=== PATIENT | male | born 1980 | race Caucasian/White ===

== ENCOUNTER 2019-12-28 10:53 | Emergency (ER) | payer SELFPAY ==
[~2019-12-28] VITALS: Ht 177.8 cm; Wt 75.2 kg
[2019-12-28 11:05] VITALS: BP 152/112
[2019-12-28] MEDS ORDERED: ONDANSETRON ODT 4 MG TAB.RAPDIS PO ONE (11:15)
[2019-12-28] MEDS ORDERED: cefTRIAXone IM 250 MG VIAL IM ONE (11:15)
[2019-12-28] MEDS ORDERED: AZITHROMYCIN 250 MG TABLET. PO ONE (11:15)
--- NOTE | 2019-12-28 11:38 | PHYS DOC ---
Past History Past Medical History: No Pertinent History, Kidney Stones Past Surgical History: Other Additional Past Surgical Histo: KIDNEY STONES, SINUS Additional Smoking Information: PACK/DAY Alcohol Use: None General Adult EDM: Chief Complaint: BLOOD IN URINE HPI: HPI: 39-year-old male presents with hematuria that began this morning. Patient also had some burning and pain in his urethra as well. Patient admits to to new unprotected sexual encounters within the last month. Patient denies any fever, abdominal pain, flank pain, vomiting, testicular pain or rashes. Review of Systems: Review of Systems: Constitutional: Denies fever or chills Eyes: Denies change in visual acuity HENT: Denies sore throat Respiratory: Denies cough or shortness of breath Cardiovascular: Denies chest pain or edema GI: Denies abdominal pain, nausea, vomiting, or diarrhea : Positive for dysuria and hematuria, no testicular pain Musculoskeletal: Denies back pain or joint pain Integument: Denies rash Neurologic: Denies headache or focal weakness Psychiatric: Denies depression or anxiety Heart Score: Risk Factors: Risk Factors: DM, Current or recent (<one month) smoker, HTN, HLP, family history of CAD, obesity. Risk Scores: Score 0 - 3: 2.5% MACE over next 6 weeks - Discharge Home Score 4 - 6: 20.3% MACE over next 6 weeks - Admit for Clinical Observation Score 7 - 10: 72.7% MACE over next 6 weeks - Early Invasive Strategies Current Medications: Current Meds: Current Medications Medications (Trade) Dose Ordered Sig/Marquis Start Time Stop Time Status Last Admin Dose Admin Azithromycin (Zithromax) 1,000 mg 1X ONCE 12/28/19 11:15 12/28/19 11:19 DC 12/28/19 11:31 1,000 MG Ceftriaxone Sodium (Rocephin Im) 250 mg 1X ONCE 12/28/19 11:15 12/28/19 11:19 DC 12/28/19 11:33 250 MG Ondansetron HCl (Zofran Odt) 4 mg 1X ONCE 12/28/19 11:15 12/28/19 11:19 DC 12/28/19 11:32 4 MG Allergies: Allergies: Allergies Coded Allergies Type Severity Reaction Last Updated Verified Sulfa (Sulfonamide Antibiotics) Allergy Unknown 12/28/19 Yes Physical Exam: PE: Constitutional: Well developed, well nourished, no acute distress, non-toxic appearance. [] HENT: Normocephalic, atraumatic, bilateral external ears normal, oropharynx moist, no oral exudates, nose normal. [] Eyes: PERRLA, EOMI, conjunctiva normal, no discharge. [] Neck: Normal range of motion, no tenderness, supple, no stridor. [] Cardiovascular:Heart rate regular rhythm, no murmur [] Lungs & Thorax: Bilateral breath sounds clear to auscultation [] Abdomen: Bowel sounds normal, soft, no tenderness, no masses, no pulsatile masses. [] exam: Mild inflammation of the distal urethra with some dried blood on the glans. No testicular pain, swelling, tenderness or erythema. Skin: Warm, dry, no erythema, no rash. [] Back: No tenderness, no CVA tenderness. [] Extremities: No tenderness, no cyanosis, no clubbing, ROM intact, no edema. [] Neurologic: Alert and oriented X 3, normal motor function, normal sensory f unction, no focal deficits noted. [] Psychologic: Affect normal, judgement normal, mood normal. [] Current Patient Data: Vital Signs: Vital Signs Date Time Temp Pulse Resp B/P (MAP) Pulse Ox O2 Delivery O2 Flow Rate FiO2 12/28/19 11:05 98.2 70 20 152/112 (125) 97 Room Air EKG: EKG: [] Radiology/Procedures: Radiology/Procedures: [] Course & Med Decision Making: Course & Med Decision Making Patient patient has white cells will support discharge. Patient has had 2 unprotected sexual encounters in the last month. Patient most likely has urethritis. Patient's been treated for GC and chlamydia. Patient will give follow-up with urology. Return if concerns Dorion Disclaimer: Concetta Disclaimer: This electronic medical record was generated, in whole or in part, using a voice recognition dictation system. Departure Departure: Impression: Primary Impression: Hematuria Additional Impression: Urethritis Disposition: 01 HOME/RESIDENCE PRIOR TO ADM Condition: STABLE Referrals: Dr. Sorensen PCP,NO (PCP) Patient Instructions: Gonorrhea, Females and Males, Hematuria, Adult, Urethritis, Adult Additional Instructions: EMERGENCY DEPARTMENT GENERAL DISCHARGE INSTRUCTIONS Thank you for coming to [facility] [place], [place] Emergency Department (ED) today and trusting us with you care. We trust that you had a positivie experience in our Emergency Department. YOUR FOLLOW UP INSTRUCTIONS ARE FOLLOWS: 1. Do you have a private Doctor? If you do not have a private doctir, please ask for a resource list of physicians or clinics that may be able to assist you with follow up care. 2. The Emergency Physicain has interpreted your x-rays. The X-Ray specialist will also review them. If there is a change in the findingd, you will be notified in 48 hours when at all possible. 3. A lab test or culture has been done, your results will be reviewed and you will be notified if you need a change in treatment. ADDITIONAL INSTRUCTIONS AND INFORMATION: 1. Your care today has been supervised by a physician who is specially trained in emergency care. Many problems require more than one evaluation for a complete diagnosis and treatment. We recommend that you schedule your follow up appointment as recommended to ensure complete treatment of you illness or injury. If you are unable to obtain follow up care and continue to have a problem, or if your consition worsens, we recommend that you return to the ED. 2. We are not able to safelymdetermine your condition over the phone nor are we able to give sound medical advice over the phone. For these safety reasons, if you call for medical advice we will ask you to come to the ED for further evaluation. 3. If you have any questions regarding these discharge instructions please call the ED at [phone]. SAFETY INFORMATION: In the interest of safety, wellness, and injury prevention; we encourage you to wear your sealbelt, if you smoke; quite smoking, and we encourage family to use a protective helmet for bicycling and other sporting events that present an increased risk for head injusry. IF YOUR SYMPTOMS WORSEN OR NEW SYMPTOMS DEVELOP, OR YOU HAVE CONCERNS ABOUT YOUR CONDITION; OR IF YOUR CONDITION WORSENS WHILE YOU ARE WAITING FOR YOUR FOLLOW UP APPOINTMENT; EITHER CONTACT YOUR PRIMARY CARE DOCTOR, THE PHYSICIAN WHOSE NAME AND NUMBER YOU WERE GIVEN, OR RETURN TO THE ED IMMEDIATELY. no sexual intercourse. follow up with urologist as provided. return if fever, concerns. Scripts Doxycycline Monohydrate (DOXYCYCLINE MONOHYDRATE) 100 Mg Capsule 1 CAP PO BID for urethritis for 10 Days, #20 CAP Prov: DIRK CHENEY MD 12/28/19 Justification of Admission: Justification of Admission: Justification of Admission Dx: N/A DIRK CHENEY MD Dec 28, 2019 11:38
[2019-12-28 12:08] LABS: CLARITY,URINE HAZY; COLOR,URINE YELLOW; GLUCOSE,URINE NEG (NEG)
[2019-12-28 12:11] LABS: BILIRUBIN,URINE SMALL (NEG); NITRITE,URINE NEG (NEG); RBC,URINE OCC /HPF (0-2); WBC,URINE 20-40 /HPF (0-4)
[2019-12-28 12:12] LABS: BACTERIA,URINE FEW /HPF (0-FEW)
[2019-12-28] MEDS ORDERED: DOXY100C14 PO (12:19)
== END 2019-12-28 12:31 | disposition home or self-care (01) ==
LOC: ER 10:53
DX: N34.2 Other urethritis (principal); R31.9 Hematuria, unspecified; F17.200 Nicotine dependence, unspecified, uncomplicated; Z87.442 Personal history of urinary calculi; Z88.2 Allergy status to sulfonamides
CPT/HCPCS: 81001; 87086; 96372; 99283; J0456; J0696; Q0162

== ENCOUNTER 2021-03-08 12:01 | Emergency (ER) | payer SELFPAY ==
[~2021-03-08] VITALS: Ht 177.8 cm; Wt 71.9 kg
[~2021-03-08 12:01] MED LIST: DOXY-181 PO
[2021-03-08] MEDS ORDERED: IV NORMAL SALINE 1,000ML 1,000 ML IV ONE (12:45)
[2021-03-08] MEDS ORDERED: ONDANSETRON PF 4 MG/2 ML VIAL. IVP ONE (12:45)
[2021-03-08] MEDS ORDERED: IOHEXOL 300 MG/ML 75 ML VIAL. IV ONE (12:45)
[2021-03-08 12:55] VITALS: BP 131/67
[2021-03-08] MEDS ORDERED: CONTRAST GIVEN. MC PRN (13:00)
[2021-03-08 13:17] LABS: BASO % 0 % (0-3); EOS % 0 % (0-3); HEMATOCRIT 42.9 % (39.0-53.0); HEMOGLOBIN 14.7 g/dL (13.0-17.5); LYMPH % 8 % (24-48); MEAN CORPUSCULAR HEMOGLOBIN 31 pg (25-35); MEAN CORPUSCULAR HGB CONC 34 g/dL (31-37); MEAN CORPUSCULAR VOLUME 89 fL (79-100); MONO # 0.7 x10^3/uL (0.0-1.1); MONO % 5 % (0-9); NEUT # 10.6 x10^3uL (1.8-7.7); NEUT % 86 % (31-73); PLATELET COUNT 227 x10^3/uL (140-400); RED BLOOD COUNT 4.82 x10^6/uL (4.30-5.70); RED CELL DISTRIBUTION WIDTH 13.3 % (11.5-14.5); WHITE BLOOD COUNT 12.3 x10^3/uL (4.0-11.0)
[2021-03-08 13:27] LABS: CALCIUM 9.1 mg/dL (8.5-10.1); CREATININE 0.8 mg/dL (0.7-1.3); GFR 107.6; POTASSIUM 3.5 mmol/L (3.5-5.1)
[2021-03-08 13:33] LABS: ALBUMIN 3.7 g/dL (3.4-5.0); ALBUMIN/GLOBULIN RATIO 0.9 (1.0-1.7); TOTAL BILIRUBIN 0.9 mg/dL (0.2-1.0); TOTAL PROTEIN 7.8 g/dL (6.4-8.2)
--- NOTE | 2021-03-08 13:52 | RAD ---
Exam Date: 03/08/2021 1:[address] ABDOMEN+PELVIS WO Indication: Reason: abdominal pain/ flank pain / Spl. Instructions: / History: . TECHNIQUE: CT examination of the abdomen and pelvis was performed without oral or intravenous contra st. One or more of the following dose reduction techniques were utilized: *Automated exposure control (AEC) *Adjustment of mA and/or kV according to patient size *Use of iterative reconstruction technique *CT scan done according to ALARA, or ALARA/IMAGE GENTLY FINDINGS: The visualized lung bases are clear. Calcified granulomas are seen in the spleen. The liver, gallbladder, spleen, pancreas, and adrenal glands are otherwise normal. There is a 3 mm nonobstructing calculus in the right kidney. The kidneys are normal bilaterally. No hydronephrosis or hydroureter is seen. No urinary tract calc sharyn are seen. Urinary bladder is normal in appearance. There is no bowel obstruction or inflammation. The appendix is normal. No significant atherosclerotic calcifications are seen. No lymphadenopathy or ascites is seen. Degenerative changes are seen in the spine. IMPRESSION: 3 mm ossific right renal calculus. No hydronephrosis on either side. Electronically signed by: Lucas Bruno MD (03/08/2021 1:50 PM) [facility]
[2021-03-08] MEDS ORDERED: MORPHINE SULFATE 4 MG/ML DISP.SYRIN. IV ONE (14:00)
--- NOTE | 2021-03-08 14:08 | PHYS DOC ---
Past History Past Medical History: No Pertinent History, Kidney Stones Past Surgical History: No Surgical History Additional Past Surgical Histo: KIDNEY STONES, SINUS Alcohol Use: None General Adult EDM: Chief Complaint: ABDOMINAL PAIN HPI: HPI: 40-year-old male presents with sudden onset left flank pain. The patient was at home when he started to have severe sudden cramping pain in the left flank. He has had kidney stones in the past. He is not sure if this is the same but he knows that the pain was severe. He also had urinary retention until right before he came to the hospital when he was able to urinate some. He denies fever chills. He has no other complaints this time. Review of Systems: Review of Systems: Constitutional: Denies fever or chills Eyes: Denies change in visual acuity HENT: Denies nasal congestion or sore throat Respiratory: Denies cough or shortness of breath Cardiovascular: Denies chest pain or edema GI: Denies abdominal pain, nausea, vomiting, bloody stools or diarrhea : Denies dysuria Musculoskeletal: Left flank pain Integument: Denies rash Neurologic: Denies headache, focal weakness or sensory changes Endocrine: Denies polyuria or polydipsia Lymphatic: Denies swollen glands Psychiatric: Denies depression or anxiety Current Medications: Current Meds: Current Medications Medications (Trade) Dose Ordered Sig/Marquis Start Time Stop Time Status Last Admin Dose Admin Info (Do NOT chart on this entry -- for MONITORING) 1 each PRN DAILY PRN 03/08/21 13:00 03/08/21 13:25 DC Iohexol (Omnipaque 300 Mg/ml) 75 ml 1X ONCE 03/08/21 12:45 03/08/21 12:46 DC Morphine Sulfate (Morphine 4mg Syringe) 4 mg 1X ONCE 03/08/21 14:00 03/08/21 14:01 DC 03/08/21 13:58 4 MG Ondansetron HCl (Zofran) 4 mg 1X ONCE 03/08/21 12:45 03/08/21 12:46 DC 03/08/21 13:12 4 MG Sodium Chloride 1,000 ml @ 1,000 mls/hr 1X ONCE 03/08/21 12:45 03/08/21 13:44 DC 03/08/21 13:13 1,000 MLS/HR Allergies: Allergies: Allergies Coded Allergies Type Severity Reaction Last Updated Verified Sulfa (Sulfonamide Antibiotics) Allergy Unknown 12/28/19 Yes Physical Exam: PE: Constitutional: Well developed, well nourished, mild acute distress, non-toxic appearance. [] HENT: Normocephalic, atraumatic, bilateral external ears normal, oropharynx moist, no oral exudates, nose normal. [] Eyes: PERRLA, EOMI, conjunctiva normal, no discharge. [] Neck: Normal range of motion, no tenderness, supple, no stridor. [] Cardiovascular:Heart rate regular rhythm, no murmur [] Lungs & Thorax: Bilateral breath sounds clear to auscultation [] Abdomen: Bowel sounds normal, soft, no tenderness, no masses, no pulsatile masses. [] Skin: Warm, dry, no erythema, no rash. [] Back: No tenderness, left CVA tenderness. [] Extremities: No tenderness, no cyanosis, no clubbing, ROM intact, no edema. [] Neurologic: Alert and oriented X 3, normal motor function, normal sensory function, no focal deficits noted. [] Psychologic: Affect normal, judgement normal, mood normal. [] Current Patient Data: Labs: Laboratory Tests Test 03/08/21 12:50 White Blood Count 12.3 x10^3/uL (4.0-11.0) H Red Blood Count 4.82 x10^6/uL (4.30-5.70) Hemoglobin 14.7 g/dL (13.0-17.5) Hematocrit 42.9 % (39.0-53.0) Mean Corpuscular Volume 89 fL (79-100) Mean Corpuscular Hemoglobin 31 pg (25-35) Mean Corpuscular Hemoglobin Concent 34 g/dL (31-37) Red Cell Distribution Width 13.3 % (11.5-14.5) Platelet Count 227 x10^3/uL (140-400) Neutrophils (%) (Auto) 86 % (31-73) H Lymphocytes (%) (Auto) 8 % (24-48) L Monocytes (%) (Auto) 5 % (0-9) Eosinophils (%) (Auto) 0 % (0-3) Basophils (%) (Auto) 0 % (0-3) Neutrophils # (Auto) 10.6 x10^3uL (1.8-7.7) H Lymphocytes # (Auto) 1.0 x10^3/uL (1.0-4.8) Monocytes # (Auto) 0.7 x10^3/uL (0.0-1.1) Eosinophils # (Auto) 0.0 x10^3/uL (0.0-0.7) Basophils # (Auto) 0.0 x10^3/uL (0.0-0.2) Sodium Level 138 mmol/L (136-145) Potassium Level 3.5 mmol/L (3.5-5.1) Chloride Level 102 mmol/L (98-107) Carbon Dioxide Level 24 mmol/L (21-32) Anion Gap 12 (6-14) Blood Urea Nitrogen 7 mg/dL (8-26) L Creatinine 0.8 mg/dL (0.7-1.3) Estimated GFR (Cockcroft-Gault) 107.6 BUN/Creatinine Ratio 9 (6-20) Glucose Level 180 mg/dL (70-99) H Calcium Level 9.1 mg/dL (8.5-10.1) Total Bilirubin 0.9 mg/dL (0.2-1.0) Aspartate Amino Transferase (AST) 136 U/L (15-37) H Alanine Aminotransferase (ALT) 206 U/L (16-63) H Alkaline Phosphatase 125 U/L (46-116) H Total Protein 7.8 g/dL (6.4-8.2) Albumin 3.7 g/dL (3.4-5.0) Albumin/Globulin Ratio 0.9 (1.0-1.7) L Lipase 52 U/L (73-393) L Vital Signs: Vital Signs Date Time Temp Pulse Resp B/P (MAP) Pulse Ox O2 Delivery O2 Flow Rate FiO2 03/08/21 13:58 20 Room Air 03/08/21 12:55 97.6 77 131/67 (88) 99 EKG: EKG: [] Radiology/Procedures: Radiology/Procedures: [] Impressions: Exam Date: 03/08/2021 1:[address] ABDOMEN+PELVIS WO Indication: Reason: abdominal pain/ flank pain / Spl. Instructions: / History: . TECHNIQUE: CT examination of the abdomen and pelvis was performed without oral or intravenous contrast. One or more of the following dose reduction techniques were utilized: *Automated exposure control (AEC) *Adjustment of mA and/or kV according to patient size *Use of iterative reconstruction technique *CT scan done according to ALARA, or ALARA/IMAGE GENTLY FINDINGS: The visualized lung bases are clear. Calcified granulomas are seen in the spleen. The liver, gallbladder, spleen, pancreas, and adrenal glands are otherwise normal. There is a 3 mm nonobstructing calculus in the right kidney. The kidneys are normal bilaterally. No hydronephrosis or hydroureter is seen. No urinary tract calculi are seen. Urinary bladder is normal in appearance. There is no bowel obstruction or inflammation. The appendix is normal. No significant atherosclerotic calcifications are seen. No lymphadenopathy or ascites is seen. Degenerative changes are seen in the spine. IMPRESSION: 3 mm ossific right renal calculus. No hydronephrosis on either side. Electronically signed by: Jaycee Bruno MD (03/08/2021 1:50 PM) [facility] DICTATED AND SIGNED BY: JAYCEE BRUNO MD DATE: 03/08/211331 CC: CONSTANTINE SMITH DO; PCP,NO ~MTH0 0 Heart Score: C/O Chest Pain: N/A Risk Factors: Risk Factors: DM, Current or recent (<one month) smoker, HTN, HLP, family history of CAD, obesity. Risk Scores: Score 0 - 3: 2.5% MACE over next 6 weeks - Discharge Home Score 4 - 6: 20.3% MACE over next 6 weeks - Admit for Clinical Observation Score 7 - 10: 72.7% MACE over next 6 weeks - Early Invasive Strategies Course & Med Decision Making: Course & Med Decision Making Pertinent Labs and Imaging studies reviewed. (See chart for details) The patient's labs are unremarkable except for elevated liver enzymes. His lipase is normal. The patient is having left-sided pain. He has a right sided kidney stone in the kidneys. It is possible that he passed a kidney stone. The patient is an IV drug user and he has not been willing to urinate for us thus far. He is stable for discharge at this time. [] Dorion Disclaimer: Dragselene Disclaimer: This electronic medical record was generated, in whole or in part, using a voice recognition dictation system. Departure Departure: Impression: Primary Impression: Kidney stones Disposition: 01 HOME / SELF CARE / HOMELESS Condition: IMPROVED Referrals: PCP,NO (PCP) Patient Instructions: Kidney Stones, [id number] CONSTANTINE SMITH DO Mar 08, 2021 14:07
== END 2021-03-08 14:20 | disposition home or self-care (01) ==
LOC: ER 12:01
DX: N20.0 Calculus of kidney (principal)
CPT/HCPCS: 36415; 74176; 80053; 83690; 85025; 96361; 96374; 96375; 99284; J2270; J2405; J7030